=== PATIENT | male | born 1950 | race Caucasian/White ===

== ENCOUNTER → 2018-04-16 | Outpatient (CLI) | payer BC, MEDICARE ==
[~2018-04-16] MED LIST: GADOBUTROL 10 MMOL/10 ML PFS ONE
[2018-04-16 13:15] LABS: CREATININE 0.95 mg/dL (0.7-1.3)
== END | disposition home or self-care (01) ==
LOC: RAD 12:21
PROVIDERS: ATTEND Family Medicine
DX: G44.59 Other complicated headache syndrome (principal); H53.9 Unspecified visual disturbance; I67.1 Cerebral aneurysm, nonruptured
CPT/HCPCS: 36415; 70544; 70553; 82565; A9585